=== PATIENT | female | born 2000 | race Caucasian/White ===

== ENCOUNTER → 2023-05-02 17:51 | Outpatient (BNVA) | payer BC, SELFPAY | PROVIDERS: Visit Provider Nurse Practitioner | DX: J02.9 Acute pharyngitis, unspecified (principal) | CPT/HCPCS: 87880 ==

== ENCOUNTER 2025-03-15 05:34 | Emergency (ER) | payer MEDICAID, SELFPAY ==
[2025-03-15 05:46] VITALS: BP 116/73; PULSE 86; RESP 18; TEMP 36.6; O2SAT 95; BMI 27.3
--- NOTE | 2025-03-15 06:12 | ED_ITS ---
HPI - General: Chief complaint: Vaginal Bleeding Stated complaint: Bleeding, clotting and 13 wks preg Time Seen by Provider: 03/15/25 06:08 Source: patient Mode of arrival: ambulatory Limitations: no limitations History of Present Illness: 24-year-old female states she is current ly 12 weeks with her second no previous problems with the initial . She states this morning she had passed a blood clot and had some lower cramping. She states her bleeding has since lightened and is only spotting currently denies any previous problems with this states pains or cramping pain she rates a 2 out of 10. Denies any discharge denies any vomiting or diarrhea. Related Data Previous Rx's ?Medication ?Instructions ?Recorded amoxicillin 500 mg capsule 500 mg PO BID 10 days #20 c aps 05/02/23 Allergies Allergy/AdvReac Type Severity Reaction Status Date / Time No Known Allergies Allergy Unverified 05/02/23 17:46 Review of Systems : Reports: vaginal bleeding Physical Exam Const: COMMON NORMALS: no acute distress, patient oriented x3 and healthy appearing HENMT: COMMON NORMALS: normocephalic and atraumatic HEAD & SCALP: normocephalic and atraumatic Eye: COMMON NORMALS: conjunctivae normal CONJUNCTIVA: Yes conjunctivae normal Neck/C-Spine: COMMON NORMALS: full ROM and supple Chest: COMMONS NORMALS: normal inspection of the chest Resp: COMMON NORMALS: normal respiratory effort Cardio: COMMON NORMALS: regular rate, regular rhythm and No murmurs present (Cardio) RATE: regular rate RHYTHM: regular rhythm GI: COMMON NORMALS: Normal to inspection, nondistended, normoactive bowel sounds present, Soft to palpation, non-tender and no masses PALPATION: Yes Soft to palpation : OTHER: cervix is closed slight blood in vaginal vault no heavy bleeding Extremity: COMMON NORMALS: normal to inspection and full ROM Neuro: COMMON NORMALS: patient oriented x3, moves all extremities and no focal motor deficits Psych: COMMON NORMALS: mental status grossly normal, Normal thought process present and cooperative THOUGHT PROCESS: Normal thought process present Skin: COMMON NORMALS: no rashes or lesions noted and no wounds GENERAL SKIN EXAM: no rashes or lesions noted Course Vital Signs: Vital signs: Vital Signs Temperature 98 F 03/15/25 05:46 Pulse Rate 86 03/15/25 05:46 Respiratory Rate 18 03/15/25 05:46 Blood Pressure 116/73 03/15/25 05:46 Pulse Oximetry 95 03/15/25 05:46 MDM - OB/Uterine Contractions Medical Decision Making Patient presents here with vaginal bleeding in differential includes ectopic miscarriage threatened miscarriage. Did a bedside ultrasound here showed an IUP consistent with dates roughly 12 weeks heart tones were in the 140s. Patient had no signs of ectopic on the ultrasound no signs of active miscarriage I did do a pelvic exam cervix is closed Rh status is positive does not require RhoGAM. Informed her she needs to follow-up with OB will put a consult order in for OB follow-up. Patient is to return if she has worsening bleeding or pain. Abdominal exam here is benign with no signs of appendicitis she is stable for discharge she understands agrees to plan did go over the bedside ultrasound with her and her Rh status she is return if worsening Medical Records I reviewed the patient's medical records. Lab Data I reviewed the patient's lab results. Laboratory Results Blood Type A Positive 03/15/25 06:33 Rho(D) Type Rh positive 03/15/25 06:33 Antibody Screen Negative 03/15/25 06:33 No radiology studies performed this visit Discharge Plan Discharge Patient Disposition: Home Clinical Impression: Threatened miscarriage Condition: Stable Prescriptions: No Action amoxicillin 500 mg capsule 500 mg PO BID 10 Days Qty: 20 0RF Discharge Orders: Discharge ED (Routine); Ordered 03/15/25 Ordered By: Chencho Mix Referrals: Candido Horne MD [Physician, [facility]] - 4-7 days Discharge Diet: Advance as tolerated Discharge Activity: Resume usual activity Patient Instructions: Threatened Miscarriage (ED) Print Language: Albanian Coding Level of Care Code ED Video Game Maker for Oscar Carroll
[2025-03-15 07:32] VITALS: BP 98/63; PULSE 89; O2SAT 95
--- NOTE | 2025-03-15 07:33 | DCPLANNER ---
messaged [facility] for er f/u
== END 2025-03-15 07:33 | disposition home or self-care (01) ==
PROVIDERS: Emergency Provider Emergency Medicine
DX: O20.0 Threatened abortion (principal); Z3A.13 13 weeks gestation of pregnancy
CPT/HCPCS: 36415; 86850; 86900; 99283